=== PATIENT | female | born 1980 | race Caucasian/White ===

== ENCOUNTER 2021-03-09 13:18 | Emergency (ER) | payer OTHER ==
[~2021-03-09] VITALS: Ht 160 cm; Wt 89.4 kg
[2021-03-09] MEDS ORDERED: PEPCID AC20 MG PO (17:28)
[2021-03-09] MEDS ORDERED: PROTONIX20 MG PO (17:28)
[2021-03-09] MEDS ORDERED: CARAFATE1 GM PO (17:28)
== END 2021-03-09 18:00 | disposition home or self-care (01) ==
LOC: ER 13:18
DX: K29.70 Gastritis, unspecified, without bleeding (principal); R10.13 Epigastric pain

== ENCOUNTER → 2021-10-17 06:53 | Outpatient (CLI) | payer OTHER ==
[~2021-10-17 06:53] MED LIST: CARAFATE1 GM PO; PEPCID AC20 MG PO; PROTONIX20 MG PO
== END | disposition home or self-care (01) ==
LOC: LAB 06:53
PROVIDERS: ATTEND Internal Medicine
DX: U07.1 COVID-19 (principal); B37.1 Pulmonary candidiasis

== ENCOUNTER 2021-10-17 07:33 | Outpatient (CLI) | payer OTHER | END 2021-10-17 07:34 | disposition home or self-care (01) | LOC: NUCLEAR 07:33 | PROVIDERS: ATTEND Internal Medicine | DX: R07.89 Other chest pain (principal) | CPT/HCPCS: 78452; 93017; A9500 ==

== ENCOUNTER 2022-05-03 16:31 | Outpatient (CLI) | payer OTHER | END 2022-05-03 16:43 | disposition home or self-care (01) | LOC: RAD 16:31 | PROVIDERS: ATTEND Internal Medicine Cardiovascular Disease | DX: M54.2 Cervicalgia (principal) ==

== ENCOUNTER → 2022-05-18 11:30 | Outpatient (CLI) | payer OTHER ==
[~2022-05-18 11:30] MED LIST changes: +METAXALONE800 MG PO
== END | disposition home or self-care (01) ==
LOC: MRI 11:30
PROVIDERS: ATTEND Internal Medicine Cardiovascular Disease
DX: I67.9 Cerebrovascular disease, unspecified (principal); G93.9 Disorder of brain, unspecified
CPT/HCPCS: 70551

== ENCOUNTER 2022-08-02 14:11 | Outpatient (CLI) | payer OTHER | END 2022-08-02 14:21 | disposition home or self-care (01) | LOC: MAMO-SONO 14:11 | PROVIDERS: ATTEND Obstetrics & Gynecology | DX: N60.11 Diffuse cystic mastopathy of right breast (principal); N60.12 Diffuse cystic mastopathy of left breast; R31.29 Other microscopic hematuria; N20.0 Calculus of kidney ==

== ENCOUNTER 2025-04-09 08:05 | Outpatient (CLI) | payer OTHER | END 2025-04-09 08:15 | disposition home or self-care (01) | LOC: SONOGRAMA 08:05 | PROVIDERS: ATTEND Internal Medicine Gastroenterology | DX: D50.8 Other iron deficiency anemias (principal); K30 Functional dyspepsia; K31.7 Polyp of stomach and duodenum ==